=== PATIENT | male | born 1940 | race Caucasian/White ===

== ENCOUNTER 2019-11-08 16:16 | Emergency (ER) | payer OTHER, MEDICARE ==
[~2019-11-08] VITALS: Ht 177.8 cm; Wt 79.4 kg
[~2019-11-08 16:16] MED LIST: ACETAMINOPHEN325 M1 PO; AMITRIPTYLINE H10 M1 PO; AMITRIPTYLINE H25 M2 PO; ATENOLOL 100MG100 M2 PO; ATENOLOL 100MG100 MG PO; ATENOLOL 50 MG50 M1; ATENOLOL 50 MG50 M1 PO; ATENOLOL 50MG T50 M1 PO; C-1000 WITH R1000 MG PO; CALCIUM 500 +1 EAC5; CALCIUM 600 +1 EAC9 PO; CIPROFLOXACIN500 M1 PO; COL-RITE50 MG PO; COLACE100 MG PO; COUMADIN 10MG T10 M1; FISH OIL 1,0001 EAC5; FISH OIL 1,2001 EAC4 PO; FLAGYL500 MG PO; FLOMAX0.4 MG PO; GARLIC OIL1 EACH; GARLIC PO; HYDROCODONE-AP1 EAC6 PO; HYDROCODONE-APA1 TA1 PO; LANOXIN 0.120.125 M1 PO; LEVAQUIN 500 M500 M2 PO; LISINOPRIL10 MG PO; METAMUCIL197.2 GM PO; NORCO 7.5-3251 EACH PO; ODORLESS GARLI500 MG PO; ROLAIDS PO; SYNTHROID50 MCG PO; TAMSULOSIN HCL0.4 M1 PO; ULTRAM 50MG TAB50 MG PO; VITCB500GO PO; XARELTO20 MG PO
[2019-11-08 17:15] LABS: ABSOLUTE NEUTROPHILS 3.9 thou/uL (1.4-8.2); BASOPHILS 0.6 % (0.0-2.0); EOSINOPHILS 0.7 % (0.0-3.0); HEMATOCRIT 48.6 % (42.0-52.0); HEMOGLOBIN 16.4 gm/dL (14.0-18.0); LYMPHOCYTES 25.6 % (24.0-44.0); MCH 31.6 pg (26.0-34.0); MCHC 33.6 g/dL (28.0-37.0); MCV 94.1 fL (80.0-100.0); MONOCYTES 8.8 % (1.0-8.0); PLATELET COUNT 145 thou/uL (150-400); POLYS 64.3 % (36.0-66.0); RBC 5.17 mil/uL (4.50-6.00); RDW 13.7 % (10.5-14.5); WBC 6.1 thou/uL (4.0-11.0)
[2019-11-08 17:23] LABS: ANION GAP 6 mmol/L (7-16); BUN 13 mg/dL (7-18); CALCIUM 10.4 mg/dL (8.5-10.1); CHLORIDE 100 mmol/L (98-107); CO2 30 mmol/L (21-32); GLUCOSE 157 mg/dL (74-106); POTASSIUM 4.2 mmol/L (3.5-5.1); SODIUM 136 mmol/L (136-145)
[2019-11-08 17:32] LABS: ALBUMIN 3.9 g/dL (3.4-5.0); SGOT 64 U/L (15-37); SGPT 107 U/L (30-65); TOTAL BILIRUBIN 0.6 mg/dL (<0.1-1.0); TOTAL PROTEIN 7.5 g/dL (6.4-8.2); TROPONIN-I <0.06 ng/mL (<0.06)
[2019-11-08 18:16] VITALS: BP 127/62
--- NOTE | 2019-11-09 08:38 | EKG ---
[place] [address] [address] 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1940 Requested By: Gretchen Herndon Order Number: [id number] MD: Erick Fairchild Measurements Intervals [place] Rate: 83 P: DC: QRS: -34 QRSD: 101 T: 119 QT: 339 QTc: 399 Interpretive Statements Atrial fibrillation LVH with secondary repolarization abnormality Anterior Q waves, possibly due to LVH Compared to ECG 12/13/2012 22:40:54 Heart rate has slowed Electronically Signed On 11-09-2019 8:38:26 [employer] by Erick Fairchild [email or web address] <ELECTRONICALLY SIGNED> By: Erick Fairchild MD, [facility] 11/09/19 0838 15 15 Erick Fairchild MD, FACC /EPI
== END 2019-11-08 18:29 | disposition home or self-care (01) ==
LOC: ER 16:16
PROVIDERS: Nurse Practitioner
DX: I48.91 Unspecified atrial fibrillation (principal); I10 Essential (primary) hypertension; E03.9 Hypothyroidism, unspecified; Z88.6 Allergy status to analgesic agent

== ENCOUNTER 2020-01-23 12:28 | Emergency (ER) | payer OTHER, MEDICARE ==
[~2020-01-23] VITALS: Ht 177.8 cm; Wt 80.7 kg
[2020-01-23] MEDS ORDERED: ATENOLOL 25 MG25 M1 PO (12:42)
[2020-01-23] MEDS ORDERED: XARELTO15 MG PO (12:43)
[2020-01-23] MEDS ORDERED: METFORMIN HCL500 M3 PO (12:44)
[2020-01-23] MEDS ORDERED: COQ-1030 MG PO (12:47)
[2020-01-23] MEDS ORDERED: PRAVACHOL 20 MG20 M1 PO (12:47)
[2020-01-23 13:15] LABS: ABSOLUTE NEUTROPHILS 4.1 thou/uL (1.4-8.2); BASOPHILS 0.6 % (0.0-2.0); EOSINOPHILS 0.7 % (0.0-3.0); HEMATOCRIT 50.9 % (42.0-52.0); HEMOGLOBIN 17.2 gm/dL (14.0-18.0); LYMPHOCYTES 34.9 % (24.0-44.0); MCH 31.7 pg (26.0-34.0); MCHC 33.8 g/dL (28.0-37.0); MCV 93.8 fL (80.0-100.0); MONOCYTES 7.8 % (1.0-8.0); PLATELET COUNT 153 thou/uL (150-400); RBC 5.43 mil/uL (4.50-6.00); RDW 13.2 % (10.5-14.5); WBC 7.3 thou/uL (4.0-11.0)
[2020-01-23 13:18] LABS: CALCIUM 9.8 mg/dL (8.5-10.1); POTASSIUM 3.9 mmol/L (3.5-5.1)
[2020-01-23 13:24] LABS: DIRECT BILIRUBIN 0.1 mg/dL (<0.1-0.2); TOTAL BILIRUBIN 0.5 mg/dL (<0.1-1.0); TOTAL PROTEIN 7.7 g/dL (6.4-8.2)
[2020-01-23 15:04] VITALS: BP 108/78
== END 2020-01-23 15:05 | disposition home or self-care (01) ==
LOC: ER 12:28
PROVIDERS: Emergency Medicine
DX: K92.2 Gastrointestinal hemorrhage, unspecified (principal); I10 Essential (primary) hypertension; I48.91 Unspecified atrial fibrillation; E03.9 Hypothyroidism, unspecified; Z88.6 Allergy status to analgesic agent

== ENCOUNTER → 2020-05-16 | Outpatient (CLI) | payer OTHER, MEDICARE ==
[~2020-05-16] VITALS: Ht 177.8 cm; Wt 81.6 kg
[~2020-05-16] MED LIST changes: +ATENOLOL 25 MG25 M1 PO; +CALCIUM 600 +1 EAC6 PO; -CALCIUM 600 +1 EAC9 PO; +COQ-10100 MG PO; +COQ-1030 MG PO; +LEVOXYL75 MCG PO; +METFORMIN HCL500 M3 PO; +PRAVACHOL 20 MG20 M1 PO; +XARELTO15 MG PO
--- NOTE | 2020-05-16 15:06 | P ---
[facility] [place] [address] PROCEDURE REPORT Name: TAMMIE HUTCHINS Room #: [facility]#: [id number] Admission: 05/16/20 Attend Phys: Erickson Green Discharge: Date of : 44 Report #: [id number] THIS REPORT FOR: cc: FAM - Family physician unknown FAM - Family physician unknown Erickson Linares MD ~ CC: Erickson Linares [facility] unknown Sang Parsons DATE OF SERVICE: 05/16/2020 PROCEDURE PERFORMED: Colonoscopy with biopsies. HISTORY OF PRESENT ILLNESS: The patient is a 79-year-old male who was seen in the office on 05/03/2020 with reports of bright red blood per rectum in December this year, lasting for approximately 1 week. He has had no further bleeding episodes. He has had a previous partial sigmoid resection for diverticulitis. No family history of colon cancer. The patient has been on Xarelto. He has been holding this for the last 2 days. He denies any symptoms at this time. Plan is for colonoscopy. DESCRIPTION OF PROCEDURE: The risks and benefits of the procedure were explained to the patient, those risks including but not limited to bleeding, perforation and the risk of sedation. He understood these risks and gave informed consent. Sedation was given using propofol per Anesthesia. Next, a digital rectal exam was initially performed, which was normal. Next, using a standard Olympus colonoscope, the scope was placed in the patient's anus and advanced under direct vision to the cecum. The overall prep was excellent. The cecum and ileocecal valve normal in appearance. A few scattered diverticula were noted in the ascending colon. No evidence of inflammation, otherwise normal. In the transverse colon, a 4 mm sessile polyp was noted. This was removed with cold forceps, otherwise normal. The descending and remaining sigmoid colon were normal. The surgical anastomosis in the distal sigmoid colon was well healed and widely patent. The rectal mucosa was normal. On retroflexion, medium size nonbleeding internal hemorrhoids were noted. Close examination of the anal canal showed no evidence of any anal fissure. Again, there was no evidence of bleeding. The scope was then withdrawn and the procedure terminated. The patient tolerated the procedure well. IMPRESSION: 1. Medium-sized internal hemorrhoids, nonbleeding likely source of bright red blood per rectum in December of this year. 2. Small colon polyp. 3. Few diverticula noted in the ascending colon. [facility] [address] [place] [address] PROCEDURE REPORT Name: TAMMIE HUTCHINS A Room #: REG [facility]#: [id number] Admission: 05/16/20 Attend Phys: Erickson Green Discharge: Date of : 44 Report #: [id number] 4. Surgical anastomosis noted in the remaining sigmoid colon. RECOMMENDATIONS: 1. Await biopsy results. 2. If polyps are hyperplastic, consider repeat colonoscopy in 10 years; if adenomatous polyp, repeat in 5 years. 3. History of previous bleeding, likely secondary to hemorrhoids. Recommend high fiber diet. If rebleeding, recommend Analpram on a p.r.n. basis. Could consider surgical banding if significant bleeding in the future. Thank you for allowing me to participate in his care. <ELECTRONICALLY SIGNED> By: Erickson Linares MD 05/16/20 1506 0955 1012 Erickson Linares MD /nt
--- NOTE | 2020-05-17 16:07 | PATH ---
[facility] [address] [place] [address] PATHOLOGY RPT PROCEDURE Name: PASTOR HUTCHINS Room #: [facility].#: [id number] Admission: 05/16/20 Date of : 44 Discharge: Report #: [id number] Path Case #: [id number] [facility] Accession Number: [id number] . 01 Material submitted: . colon - POLYP AT TRANSVERSE COLON. Modifiers: transverse . 01 Clinical history: . Blood in stool, history of polyps Polyp and hemorrhoids . 02 Diagnosis: Polyp, transverse, endoscopic biopsy: - Tubular adenoma. - Negative for high-grade dysplasia. (IUV:pit 05/17/2020) . QTP 05/17/2020 1358 Local . 02 Electronically signed: . Norma Calderon MD, Pathologist NPI- [id number] . 01 Gross description: . The specimen is received in formalin, labeled "Benjamin, Pastor, polyp at transverse colon" and consists of multiple fragments of casillas tissue measuring 0.8 x 0.5 x 0.2 cm in aggregate which are entirely submitted in A1. (SDY; 05/16/2020) SYU/SYU 05/16/2020 1621 Local . 02 Pathologist provided ICD-10: D12.3 . 02 CPT . 981289 Specimen Comment: A courtesy copy of this report has been sent to [phone] Specimen Comment: Report sent to Performed at: [address], [place] [id number] MD Darion Burciaga MD Phone: [phone] Performed at: [address] [id number] MD Norma Calderon MD Phone: [phone]
== END | disposition home or self-care (01) ==
LOC: GI 07:56
PROVIDERS: ATTEND Specialist
DX: K62.5 Hemorrhage of anus and rectum (principal); D12.3 Benign neoplasm of transverse colon; K57.30 Diverticulosis of large intestine without perforation or abscess without bleeding; K64.8 Other hemorrhoids; I10 Essential (primary) hypertension; E11.9 Type 2 diabetes mellitus without complications; I48.91 Unspecified atrial fibrillation; E78.00 Pure hypercholesterolemia, unspecified; N40.0 Benign prostatic hyperplasia without lower urinary tract symptoms; E03.9 Hypothyroidism, unspecified; Z98.0 Intestinal bypass and anastomosis status; Z98.890 Other specified postprocedural states; Z79.899 Other long term (current) drug therapy; Z88.8 Allergy status to other drugs, medicaments and biological substances; Z79.01 Long term (current) use of anticoagulants; Z11.59 Encounter for screening for other viral diseases
CPT/HCPCS: 62110; 62900

== ENCOUNTER 2021-12-29 17:44 | Emergency (ER) | payer OTHER, MEDICARE ==
[~2021-12-29] VITALS: Ht 177.8 cm; Wt 86.2 kg
[2021-12-29 20:21] LABS: ABSOLUTE NEUTROPHILS 4.1 thou/uL (1.4-8.2); BASOPHILS 0.9 % (0.0-2.0); EOSINOPHILS 0.7 % (0.0-3.0); HEMATOCRIT 48.6 % (42.0-52.0); HEMOGLOBIN 16.6 gm/dL (14.0-18.0); LYMPHOCYTES 18.5 % (24.0-44.0); MCH 31.7 pg (26.0-34.0); MCHC 34.3 g/dL (28.0-37.0); MCV 92.5 fL (80.0-100.0); MONOCYTES 9.8 % (1.0-8.0); PLATELET COUNT 161 thou/uL (150-400); POLYS 70.1 % (36.0-66.0); RBC 5.25 mil/uL (4.50-6.00); RDW 13.5 % (10.5-14.5); WBC 5.8 thou/uL (4.0-11.0)
[2021-12-29 20:29] LABS: CALCIUM 9.8 mg/dL (8.5-10.1); POTASSIUM 4.2 mmol/L (3.5-5.1)
[2021-12-29 20:30] LABS: MAGNESIUM 2.1 mg/dL (1.8-2.4)
[2021-12-29 21:25] VITALS: BP 118/72
== END 2021-12-29 21:28 | disposition home or self-care (01) ==
LOC: ER 17:44
PROVIDERS: Student in an Organized Health Care Education/Training Program
DX: R19.7 Diarrhea, unspecified (principal); Z20.822 Contact with and (suspected) exposure to COVID-19; M54.9 Dorsalgia, unspecified; I10 Essential (primary) hypertension; I48.91 Unspecified atrial fibrillation; E11.9 Type 2 diabetes mellitus without complications; E78.00 Pure hypercholesterolemia, unspecified; E03.9 Hypothyroidism, unspecified; Z98.890 Other specified postprocedural states; Z88.6 Allergy status to analgesic agent